=== PATIENT | male | born 1980 | race Caucasian/White ===

== ENCOUNTER 2019-08-17 18:51 | Emergency (ER) | payer BC ==
[~2019-08-17] VITALS: Ht 162.6 cm; Wt 74.4 kg
--- NOTE | 2019-08-17 19:00 | NUR ---
Patient ambulated to bed 1. RN evaluating patient at bedside.
[2019-08-17 19:02] VITALS: BP 144/88
--- NOTE | 2019-08-17 19:10 | NUR ---
38 YEAR OLD MALE COMPLAINS OF BURNING ON URINATION X3 DAYS. PATIENT STATES THAT HE ALSO HAS CONTINOUS FLANK PAIN 7/10. PATIENT DENIES CHANGE IN URINE COLOR OR SMELL. PATIENT AOX4, BREAHTING EVEN AND UNLABORED, SKIN WARM AND DRY. BED IN LOWEST POSITION, LOCKED, BED RAIL UPX1. PMH - DENIES ALLERGIES - "CAPSULE COVERS"
[2019-08-17] MEDS ORDERED: NACL 0.9% 1,000 ML IV ONE (19:45)
[2019-08-17] MEDS ORDERED: KETOROLAC 30 MG/ML VIAL IVP ONE (19:45)
[2019-08-17] MEDS ORDERED: cefTRIAXone 2,000 MG in DEXTROSE 5% 100 ML IV ONE (19:45)
[2019-08-17] MEDS ORDERED: cefTRIAXone 1,000 MG VIAL ONE (19:55)
--- NOTE | 2019-08-17 20:00 | NUR ---
PATIENT AOX4, BREATHING EVEN AND UNLABORED
[2019-08-17 20:27] LABS: BASOPHILS # (AUTO) 0.1 K/uL (0.00-0.22); BASOPHILS % (AUTO) 1.5 % (0.0-2.0); EOSINOPHILS # (AUTO) 0.2 K/uL (0-0.4); HEMATOCRIT 45.3 % (36-52); HEMOGLOBIN 14.9 g/dL (12.0-18.0); LYMPHOCYTES % (AUTO) 12.4 % (20.5-51.1); MEAN CORPUSCULAR HEMOGLOBIN 30 pg (27-31); MEAN CORPUSCULAR HGB CONC 33 g/dL (33-37); MEAN CORPUSCULAR VOLUME 90.1 fL (80-94); MONOCYTES # (AUTO) 0.5 K/uL (0.8-1.0); MONOCYTES % (AUTO) 6.3 % (1.7-9.3); NEUTROPHILS % (AUTO) 77.8 % (42.2-75.2); PLATELET COUNT (AUTO) 250 K/uL (140-450); RED BLOOD CELL COUNT(AUTO) 5.03 MIL/uL (4.20-6.10); RED CELL DISTRIBUTION WIDTH 13.8 % (11.6-13.7); WHITE BLOOD COUNT (AUTO) 7.8 K/uL (4.8-10.8)
[2019-08-17 20:30] LABS: APPEARANCE,URINE CLEAR (CLEAR); BILIRUBIN,URINE NEGATIVE (NEGATIVE); BLOOD, URINE NEGATIVE (NEGATIVE); COLOR,URINE YELLOW (YELLOW); LEUKOCYTE ESTERASE ,URINE 1+ (NEGATIVE); NITRITE, URINE NEGATIVE (NEGATIVE); PH,URINE 7.5 (5.0-9.0); UGLUCOSE NEGATIVE (NEGATIVE)
[2019-08-17 20:40] LABS: ALBUMIN 3.7 g/dL (3.4-5.0); ANION GAP 12.2 (8-16); CARBON DIOXIDE 30.8 mmol/L (21-32); RBC,URINE 0-5 /HPF (0-5); TOTAL BILIRUBIN 0.5 mg/dL (0.0-1.0); WBC,URINE 16-25 (MOD) /HPF (0-5)
--- NOTE | 2019-08-17 21:30 | NUR ---
PATIENT AOX4, BREATHING EVEN AND UNLABORED
[2019-08-17 22:30] VITALS: BP 144/88
--- NOTE | 2019-08-17 22:30 | NUR ---
DISCHARGE DONE BY DR CHAVEZ. Patient discharged with v/s stable. Written and verbal after care instructions about pyelonephritis given and explained. Patient alert, oriented and verbalized understanding of instructions. Ambulatory with steady gait. All questions addressed prior to discharge. ID band removed. Patient advised to follow up with PMD. Rx of naprosyn and cipro given. Patient educated on indication of medication including possible reaction and side effects. Opportunity to ask questions provided and answered.
--- NOTE | 2019-08-17 22:30 | NUR ---
Note jamar in EDM - 08/18/19 at 0433 by TANESHA Patient discharged with v/s stable. Written and verbal after care instructions about pyelonephritis given and explained. Patient alert, oriented and verbalized understanding of instructions. Ambulatory with steady gait. All questions addressed prior to discharge. ID band removed. Patient advised to follow up with PMD. Rx of naprosyn and cipro given. Patient educated on indication of medication including possible reaction and side effects. Opportunity to ask questions provided and answered.
--- NOTE | 2019-08-18 01:00 | NUR ---
Grecia roldan in [facility] - 08/18/19 at 0434 by MEDJJ PATIENT AOX4, BREATHING EVEN AND UNLABORED
--- NOTE | 2019-08-18 03:30 | NUR ---
Grecia roldan in [facility] - 08/18/19 at 0434 by MEDJJ PATIENT AOX4, BREATHING EVEN AND UNLABORED
== END 2019-08-17 22:31 | disposition home or self-care (01) ==
LOC: MED 18:51
DX: N12 Tubulo-interstitial nephritis, not specified as acute or chronic (principal)
CPT/HCPCS: 36415; 80053; 81001; 85025; 87040; 87086; 96365; 96375; 99284; J0696; J1885; J7030

== ENCOUNTER 2020-05-26 17:09 | Outpatient (CLI) | payer OTHER ==
[2020-05-26 18:38] LABS: BASOPHILS % (AUTO) 0.5 % (0.0-2.0); EOSINOPHILS # (AUTO) 0.1 K/uL (0-0.4); EOSINOPHILS % (AUTO) 1.9 % (0.0-4.0); HEMATOCRIT 44.3 % (36-52); HEMOGLOBIN 14.7 g/dL (12.0-18.0); LYMPHOCYTES % (AUTO) 25.5 % (20.5-51.1); MEAN CORPUSCULAR HEMOGLOBIN 30 pg (27-31); MEAN CORPUSCULAR HGB CONC 33 g/dL (33-37); MEAN CORPUSCULAR VOLUME 89.1 fL (80-94); MONOCYTES # (AUTO) 0.6 K/uL (0.8-1.0); MONOCYTES % (AUTO) 7.1 % (1.7-9.3); NEUTROPHILS # (AUTO) 5.2 K/uL (1.8-7.7); PLATELET COUNT (AUTO) 312 K/uL (140-450); RED BLOOD CELL COUNT(AUTO) 4.97 MIL/uL (4.20-6.10); RED CELL DISTRIBUTION WIDTH 13.3 % (11.6-13.7)
[2020-05-26 18:59] LABS: ALBUMIN 4.2 g/dL (3.4-5.0); ANION GAP 13.9 (8-16); CARBON DIOXIDE 27.7 mmol/L (21-32); CHOL/HDL RATIO 6.3 (1-4.5); POTASSIUM 3.6 mmol/L (3.5-5.1); TOTAL BILIRUBIN 1.1 mg/dL (0.0-1.0)
[2020-05-26 19:20] LABS: THYROID STIMULATING HORMONE 3.88 uIU/mL (0.34-3.74)
[2020-05-27] MEDS ORDERED: LORazepam 2 MG/ML VIAL ONE (22:43)
== END 2020-05-26 22:08 | disposition home or self-care (01) ==
LOC: MLB 17:09
PROVIDERS: ATTEND Internal Medicine Geriatric Medicine
DX: K14.0 Glossitis (principal); Z00.00 Encounter for general adult medical examination without abnormal findings
CPT/HCPCS: 36415; 80053; 82728; 83540; 84443; 85025; 87070; J2060

== ENCOUNTER 2021-02-09 16:42 | Outpatient (CLI) | payer OTHER ==
[2021-02-09 17:30] LABS: APPEARANCE,URINE CLEAR (CLEAR); BILIRUBIN,URINE NEGATIVE (NEGATIVE); BLOOD, URINE NEGATIVE (NEGATIVE); COLOR,URINE YELLOW (YELLOW); LEUKOCYTE ESTERASE ,URINE NEGATIVE (NEGATIVE); NITRITE, URINE NEGATIVE (NEGATIVE); PH,URINE 5.5 (5.0-9.0); UGLUCOSE NEGATIVE (NEGATIVE)
[2021-02-09 17:33] LABS: BASOPHILS % (AUTO) 0.2 % (0.0-2.0); EOSINOPHILS # (AUTO) 0.8 K/uL (0-0.4); EOSINOPHILS % (AUTO) 6.9 % (0.0-4.0); HEMATOCRIT 43.7 % (36-52); HEMOGLOBIN 14.7 g/dL (12.0-18.0); LYMPHOCYTES # (AUTO) 1.7 K/uL (2.0-11.5); LYMPHOCYTES % (AUTO) 15.2 % (20.5-51.1); MEAN CORPUSCULAR HEMOGLOBIN 30 pg (27-31); MEAN CORPUSCULAR HGB CONC 34 g/dL (33-37); MEAN CORPUSCULAR VOLUME 88.6 fL (80-94); MONOCYTES # (AUTO) 0.8 K/uL (0.8-1.0); MONOCYTES % (AUTO) 7.1 % (1.7-9.3); NEUTROPHILS % (AUTO) 70.6 % (42.2-75.2); PLATELET COUNT (AUTO) 264 K/uL (140-450); RED BLOOD CELL COUNT(AUTO) 4.94 MIL/uL (4.20-6.10); RED CELL DISTRIBUTION WIDTH 13.1 % (11.6-13.7); WHITE BLOOD COUNT (AUTO) 11.3 K/uL (4.8-10.8)
[2021-02-09 17:47] LABS: ALBUMIN 3.8 g/dL (3.4-5.0); ANION GAP 13.4 (8-16); CARBON DIOXIDE 26.3 mmol/L (21-32); CHOL/HDL RATIO 5.5 (1-4.5); POTASSIUM 3.7 mmol/L (3.5-5.1); TOTAL BILIRUBIN 0.5 mg/dL (0.0-1.0)
[2021-02-11 09:06] LABS: FOLIC ACID 17.5 ng/mL (>3.0)
== END 2021-02-09 19:36 | disposition home or self-care (01) ==
LOC: MLB 16:42
PROVIDERS: ATTEND Preventive Medicine Preventive Medicine/Occupational Environmental Medicine
DX: Z00.00 Encounter for general adult medical examination without abnormal findings (principal)
CPT/HCPCS: 36415; 80053; 81003; 82306; 82607; 82746; 83655; 84432; 84443; 84480; 85025; 86800

== ENCOUNTER 2021-02-11 21:16 | Emergency (ER) | payer OTHER ==
[~2021-02-11] VITALS: Ht 162.6 cm; Wt 77.6 kg
[2021-02-11 22:04] VITALS: BP 159/102
[2021-02-11 23:25] LABS: BASOPHILS % (AUTO) 0.4 % (0.0-2.0); EOSINOPHILS % (AUTO) 8.2 % (0.0-4.0); HEMATOCRIT 43.9 % (36-52); HEMOGLOBIN 14.7 g/dL (12.0-18.0); LYMPHOCYTES # (AUTO) 2.2 K/uL (2.0-11.5); LYMPHOCYTES % (AUTO) 18.6 % (20.5-51.1); MEAN CORPUSCULAR HEMOGLOBIN 30 pg (27-31); MEAN CORPUSCULAR HGB CONC 33 g/dL (33-37); MEAN CORPUSCULAR VOLUME 89.1 fL (80-94); MONOCYTES # (AUTO) 0.9 K/uL (0.8-1.0); MONOCYTES % (AUTO) 7.4 % (1.7-9.3); NEUTROPHILS # (AUTO) 7.6 K/uL (1.8-7.7); NEUTROPHILS % (AUTO) 65.4 % (42.2-75.2); PLATELET COUNT (AUTO) 258 K/uL (140-450); RED BLOOD CELL COUNT(AUTO) 4.93 MIL/uL (4.20-6.10); RED CELL DISTRIBUTION WIDTH 13.2 % (11.6-13.7); WHITE BLOOD COUNT (AUTO) 11.6 K/uL (4.8-10.8)
[2021-02-11 23:53] LABS: ALBUMIN 3.8 g/dL (3.4-5.0); ANION GAP 12.4 (8-16); CARBON DIOXIDE 26.5 mmol/L (21-32); POTASSIUM 3.9 mmol/L (3.5-5.1); TOTAL BILIRUBIN 0.4 mg/dL (0.0-1.0)
--- NOTE | 2021-02-12 00:22 | NUR ---
PT TAKEN TO BED 2
--- NOTE | 2021-02-12 00:54 | NUR ---
40 YO/M BIB SELF W CO ABDOMINAL PAIN 5/10 DULL AND DIARRHEA X6 DAYS. REPORTS DIARRHEA AND PAIN STOPPED FOR 1 DAY FOLLOWING AMMONIA INTAKE BUT THEN RETURNED AFTER ONE DAY. PATIENT REPORTS STOOLS ARE VERY STRONG SMELLING AND BAD SMELLING. REPORTS POSSIBLE CONTACT W C-DIFF. PATIENT ALSO REPORTS NAUSEA BUT NO VOMITING. DENIES BLOOD IN BOWEL , DENIES URINE PROBLEMS OR FEVER. BOWEL SOUNDS PRESENT THROUGHOUT. PATIENT REFUSING PAIN MEDICATION AT THIS TIME. VSS. PATIENT LAYING IN BED LOCKED IN LOWEST POSITION, X1 SIDERAIL UP. BREATHING EVEN AND UNLABORED, NAD NOTED. WILL CONTINUE TO MONITOR. PMH:DENIES NKA
[2021-02-12] MEDS ORDERED: NACL 0.9% 1,000 ML IV ONE (01:40)
[2021-02-12] MEDS ORDERED: ONDANSETRON 4 MG ODT PO ONE (01:40)
[2021-02-12] MEDS ORDERED: DICYCLOMINE HCL LIQUID 10 MG/5 ML UDC PO ONE (01:40)
--- NOTE | 2021-02-12 02:15 | NUR ---
Grecia roldan in ED - 02/12/21 at 0233 by ADELAIDE PATIENT REFUSED ZOFRAN MEDICATION AT THIS TIME. DENIES NAUSEA.
--- NOTE | 2021-02-12 02:15 | NUR ---
PATIENT REFUSED ZOFRAN AT THIS TIME, DENIES CURRENT NAUSEA.
--- NOTE | 2021-02-12 03:05 | NUR ---
PATIENT STOOL SAMPLE COLLECTED AT THIS TIME.
--- NOTE | 2021-02-12 03:26 | NUR ---
IV removed, catheter intact and site benign. Applied folded 4x4 gauze and tape to stop bleeding.
[2021-02-12] MEDS ORDERED: BEN10 PO (03:27)
[2021-02-12] MEDS ORDERED: ACET-9527 PO (03:27)
[2021-02-12 03:35] VITALS: BP 118/74
--- NOTE | 2021-02-12 03:35 | NUR ---
Patient discharged with v/s stable. Written and verbal after care instructions given and explained. Patient alert, oriented and verbalized understanding of instructions. Ambulatory with steady gait. All questions addressed prior to discharge. ID band removed. Patient advised to follow up with PMD. Rx of hydrocodon-acetaminophen 5-325, bentyl given. Patient educated on indication of medication including possible reaction and side effects. Opportunity to ask questions provided and answered.
== END 2021-02-12 03:35 | disposition home or self-care (01) ==
LOC: MED 21:16
DX: R19.7 Diarrhea, unspecified (principal); E86.0 Dehydration; R74.01 Elevation of levels of liver transaminase levels
CPT/HCPCS: 36415; 80053; 83690; 85025; 87070; 96360; 99283; J7030; Q0162